=== PATIENT | male | born 1950 | race Caucasian/White ===

== ENCOUNTER 2017-09-05 01:11 | Emergency (ER) | payer MEDICARE ==
[2017-09-05 01:38] LABS: Basophils # (A) 0.1 k/uL (0-0.2); Basophils % (A) 1 %; Eosinophils # (A) 0.1 k/uL (0-0.7); Eosinophils % (A) 2 %; HCT 50.6 % (39.0-53.0); HGB 17.4 gm/dL (13.0-17.5); Lymphocytes # (A) 1.9 k/uL (1.0-4.8); Lymphocytes % (A) 26 %; MCH 32.4 pg (25.0-35.0); MCHC 34.5 g/dL (31.0-37.0); Mean Platelet Volume 7.8; Monocytes # (A) 0.4 k/uL (0-1.0); Monocytes % (A) 6 %; Neutrophils # (A) 4.7 k/uL (1.3-7.7); Neutrophils % (A) 64 %; Platelet Count 169 k/uL (150-450); RBC 5.38 m/uL (4.30-5.90); RDW 13.2 % (11.5-15.5); WBC 7.4 k/uL (3.8-10.6)
--- NOTE | 2017-09-05 01:40 | ED ---
Chest Pain HPI - General Chief Complaint: Chest Pain Stated Complaint: chest pain Time Seen by Provider: 09/05/17 01:24 Source: patient, family Mode of arrival: ambulatory Limitations: no limitations - History of Present Illness Initial Comments: This patient is a 67-year-old man who presents to be evaluated for left-sided chest pain. Patient states that started approximately 2 hours ago while he was watching wrestling on television. He states that it feels like he was punched there, but he did not have any trauma. He does state that he may have strained his chest wall while at work, but that he is not recall any specific injury. Patient states the pain is constant. He has not discovered any worsening or relieving factors. No associated symptoms. MD Complaint: chest pain Onset/Timin -: hour(s) Onset: during rest Pain Location: left chest Pain Radiation: none Severity: moderate Quality: other (Like I was punched) Consistency: constant Improves With: nothing Worsens With: nothing Treatments Prior to Arrival: none - Related Data Home Medications Medication Instructions Recorded Confirmed No Known Home Medications [No 09/05/17 09/05/17 Known Home Medications] Allergies Allergy/AdvReac Type Severity Reaction Status Date / Time No Known Allergies Allergy Verified 09/05/17 01:16 Review of Systems ROS Statement: Those systems with pertinent positive or pertinent negative responses have been documented in the HPI. ROS Other: All systems not noted in ROS Statement are negative. Constitutional: Denies: fever, chills, weakness Respiratory: Denies: cough, dyspnea Cardiovascular: Reports: chest pain. Denies: palpitations, orthopnea, edema, syncope Gastrointestinal: Denies: abdominal pain, nausea, vomiting Musculoskeletal: Denies: back pain Skin: Denies: rash Neurological: Denies: headache, weakness, numbness, paresthesias EKG Findings - EKG Comments: EKG Findings:: Possible old anterior infarct. - EKG Results: EKG: interpreted by YANETHD, sinus rhythm (Rate proximal 91 bpm), normal axis, normal ST/T Past Medical History Past Medical History: No Reported History History of Any Multi-Drug Resistant Organisms: None Reported Past Surgical History: No Surgical Hx Reported Past Psychological History: No Psychological Hx Reported Smoking Status: Current every day smoker Past Alcohol Use History: None Reported Past Drug Use History: None Reported General Exam Limitations: no limitations General appearance: alert, in no apparent distress Head exam: Present: atraumatic, normocephalic Eye exam: Present: normal appearance. Absent: scleral icterus, conjunctival injection ENT exam: Present: normal oropharynx Respiratory exam: Present: normal lung sounds bilaterally. Absent: respiratory distress, wheezes, rales, rhonchi, stridor, chest wall tenderness Cardiovascular Exam: Present: regular rate, normal rhythm, normal heart sounds. Absent: systolic murmur, diastolic murmur, rubs, gallop GI/Abdominal exam: Present: soft. Absent: distended, tenderness, guarding, rebound, mass Extremities exam: Present: normal inspection, normal capillary refill. Absent: pedal edema, calf tenderness Back exam: Present: normal inspection. Absent: CVA tenderness (R), CVA tenderness (L) Neurological exam: Present: alert Skin exam: Present: warm, dry, intact, normal color. Absent: rash Course Vital Signs 09/05/17 09/05/17 01:13 01:55 Temperature 97.6 F Pulse Rate 103 H 91 Respiratory 20 18 Rate Blood Pressure 185/94 150/81 O2 Sat by Pulse 97 97 Oximetry Chest [facility] Patient is 67-year-old man presenting with chest pain that has mixture of typical and atypical features. Given his smoking history I did advise admission for telemetry monitoring and serial cardiac enzymes. The patient states that as his symptoms have all resolved and he is feeling well, he wants to go home and follow-up. We discussed the appropriate follow-up and further care, as well as return parameters. The patient understands that he is welcome to return at any time and states she will do so should any symptoms develop. Disposition Clinical Impression: Chest pain Disposition: Left Against Medical Advice Condition: Undetermined Instructions: Chest Pain (ED) Is patient prescribed a controlled substance at d/c from ED?: No Referrals: None,Stated [Primary Care Provider] - 1-2 days Rossy Rowland MD [STAFF PHYSICIAN] - 1-2 days
[2017-09-05 01:48] LABS: ALT 68 U/L (21-72); AST 69 U/L (17-59); Albumin 4.4 g/dL (3.5-5.0); Alkaline Phosphatase 79 U/L (38-126); Anion Gap 15 mmol/L; Blood Urea Nitrogen 15 mg/dL (9-20); Calcium 9.6 mg/dL (8.4-10.2); Carbon Dioxide 27 mmol/L (22-30); Chloride 101 mmol/L (98-107); Glucose 119 mg/dL (74-99); Potassium 4.5 mmol/L (3.5-5.1); Sodium 143 mmol/L (137-145); Total Bilirubin 0.7 mg/dL (0.2-1.3); Total Protein 7.4 g/dL (6.3-8.2)
--- NOTE | 2017-09-05 01:54 | XR ---
EXAMINATION TYPE: XR chest 1V portable DATE OF EXAM: 09/05/2017 COMPARISON: 05/07/2014 HISTORY: Chest pain TECHNIQUE: Single frontal view of the chest is obtained. FINDINGS: Heart and mediastinum are normal. Lungs are clear. Diaphragm is normal. Bony thorax is int act. There are chest leads. IMPRESSION: Normal chest. No change.
[2017-09-05 02:14] VITALS: RESP 18
[2017-09-05 02:41] VITALS: BP 156/86; PULSE 68; TEMP 98.1
== END 2017-09-05 02:38 | disposition left against medical advice (07) ==
LOC: EC 01:11
DX: R07.9 Chest pain, unspecified (principal); F17.200 Nicotine dependence, unspecified, uncomplicated; Z53.29 Procedure and treatment not carried out because of patient's decision for other reasons
CPT/HCPCS: 36415; 71045; 80053; 83735; 84484; 85025; 85379; 93005; 99282; 99285

== ENCOUNTER 2017-09-05 18:54 | Emergency (ER) | payer MEDICARE ==
[2017-09-05 19:23] VITALS: PULSE 95
[2017-09-05 19:46] VITALS: BP 147/93; RESP 16; TEMP 98
--- NOTE | 2017-09-05 20:16 | ED ---
Recheck HPI - General Chief Complaint: Recheck/Abnormal Lab/Rx Stated Complaint: work clearance Time Seen by Provider: 09/05/17 19:57 Source: patient, RN notes reviewed, old records reviewed Mode of arrival: ambulatory Limitations: no limitations - History of Present Illness Initial Comments: This patient is a 67 year old male, presents to ED wanting a work note for clearance. Patient reports He was evaluated yesterday for chest pain's. States that he left against medical advice. He states that he was allowed to return to work on light duty. Patient states that his work will not let him work with light duty. He states that he needs to keep his job. He requests to work not saying that he can have full return to work. He denies any chest pain. He states that his symptoms are related to a pulled muscle last night. - Related Data Home Medications Medication Instructions Recorded Confirmed No Known Home Medications [No 09/05/17 09/05/17 Known Home Medications] Allergies Allergy/AdvReac Type Severity Reaction Status Date / Time No Known Allergies Allergy Verified 09/05/17 01:16 Review of Systems ROS Statement: Those systems with pertinent positive or pertinent negative responses have been documented in the HPI. ROS Other: All systems not noted in ROS Statement are negative. Past Medical History Past Medical History: No Reported History History of Any Multi-Drug Resistant Organisms: None Reported Past Surgical History: No Surgical Hx Reported Past Psychological History: No Psychological Hx Reported Smoking Status: Current every day smoker Past Alcohol Use History: None Reported Past Drug Use History: None Reported General Exam - General Exam Comments Initial Comments: 67 year old male, no distress. Limitations: no limitations General appearance: alert, in no apparent distress Head exam: Present: atraumatic, normocephalic, normal inspection Eye exam: Present: normal appearance, PERRL, EOMI. Absent: scleral icterus, conjunctival injection, periorbital swelling ENT exam: Present: normal exam, mucous membranes moist Neck exam: Present: normal inspection. Absent: tenderness, meningismus, lymphadenopathy Respiratory exam: Present: normal lung sounds bilaterally. Absent: respiratory distress, wheezes, rales, rhonchi, stridor Cardiovascular Exam: Present: regular rate, normal rhythm, normal heart sounds. Absent: systolic murmur, diastolic murmur, rubs, gallop, clicks Extremities exam: Present: normal inspection, full ROM, normal capillary refill. Absent: tenderness, pedal edema, joint swelling, calf tenderness Back exam: Present: normal inspection Neurological exam: Present: alert, oriented X3, CN II-XII intact Psychiatric exam: Present: normal affect, normal mood Skin exam: Present: warm, dry, intact, normal color. Absent: rash Course Vital Signs 09/05/17 09/05/17 19:20 19:42 Temperature 98.7 F 98.0 F Pulse Rate 95 95 Respiratory 18 16 Rate Blood Pressure 165/79 147/93 O2 Sat by Pulse 95 95 Oximetry Medical Decision Making - Medical Decision Making Well appearing 67 year old male requests a note for returning to work. He was evaluated yesterday for chest pain and left AMA. Patient reports no chest pain, shortness of breath, or any other symptoms. Discussed he needs to follow up with PCP to get complete work clearance. All question answered and return parameters discussed. Disposition Clinical Impression: Return to work exam Disposition: HOME SELF-CARE Condition: Good Additional Instructions: Patient is to return to the emergency department for further evaluation and there is any chest pain or other concerning symptoms. Is patient prescribed a controlled substance at d/c from ED?: No If prescribed controlled substance>3 days was MAPS reviewed?: No When asked, does pt state using other controlled substances?: No Referrals: None,Stated [Primary Care Provider] - 1-2 days Michael Guerrero Jr, DO [Doctor of Osteopathic Medicine] - 1-2 days Time of Disposition: 20:15
== END 2017-09-05 20:25 | disposition home or self-care (01) ==
LOC: EC 18:54
DX: Z02.1 Encounter for pre-employment examination (principal); F17.200 Nicotine dependence, unspecified, uncomplicated
CPT/HCPCS: 99282

== ENCOUNTER → 2017-10-04 | Outpatient (CLI) | payer MEDICARE ==
--- NOTE | 2017-10-04 10:21 | NM ---
EXAMINATION TYPE: NM stress cardiolite complete DATE OF EXAM: 10/04/2017 COMPARISON: NONE HISTORY: Chest pain with history of tobacco abuse. TECHNIQUE: After the intravenous administration of 10.14 mCi Tc 99m Sestamibi - Rest images obtained 50 minutes post injection. The patient exercised using a SAVANNA protocol and 1 minute prior to peak exercise was injected with 25.7 mCi Tc 99m Sestamibi - Stress images obtained 10 minutes post inject ion. FINDINGS: Targeted heart rate was achieved during performance of the study. Review of stress and rest SPECT rachel ges demonstrates no distinct perfusion abnormality. Gated analysis shows normal wall motion with an estimated left ventricular ejection fraction of 65 %. TID is calculated at 0.84 IMPRESSION: No scintigraphic evidence for reversible ischemia. Estimated left ventricular ejection fraction of 65 %.
--- NOTE | 2017-10-04 11:27 | ECHOF ---
Referral Reason:R07.89 Chest Pain MEASUREMENTS -------- HEIGHT: 170.2 cm WEIGHT: 88.5 kg BP: 184/92 RVIDd: 2.9 cm (< 3.3) IVSd: 1.0 cm (0.6 - 1.1) LVIDd: 4.0 cm (3.9 - 5.3) LVPWd: 1.1 cm (0.6 - 1.1) IVSs: 1.3 cm LVIDs: 3.0 cm LVPWs: 1.3 cm LAESV Index (A-L): 20.78 ml/m Ao Diam: 3.9 cm (2.0 - 3.7) AV Cusp: 1.8 cm (1.5 - 2.6) LA Diam: 2.5 cm (2.7 - 3.8) EPSS: 0.5 cm MV E Satinder: 0.65 m/s MV DecT: 242 ms MV A Satinder: 0.62 m/s MV E/A Ratio: 1.04 RAP: 5.00 mmHg RVSP: 7.49 mmHg MV EF SLOPE: 125.80 mm/s (70 - 150) MV EXCURSION: 1.76 cm (> 18.000) FINDINGS -------- Sinus rhythm. This was a technically adequate study. The left ventricular size is normal. Left ventricular wall thickness is normal. Overall left vent ricular systolic function is normal with, an EF between 55 - 60 %. The right ventricle is normal in size and function. Normal LA size by volume 22+/-6 ml/m2. RA appears enlarged. Aortic valve is trileaflet and is mildly thickened. Trace amount of aortic regurgitation. There is no evidence of aortic stenosis. The mitral valve leaflets are mildly thickened. There is trace to mild mitral regurgitation. Trace tricuspid regurgitation present. Right ventricular systolic pressure is normal at < 35 mmHg. There is no evidence of pulmonary hypertension. Trace/mild (physiologic) pulmonic regurgitation. The aortic root is borderline dilated, up to 3.9 cm. Normal inferior vena cava with normal inspiratory collapse consistent with estimated right atrial pre ssure of 5 mmHg. There is no pericardial effusion. CONCLUSIONS -------- 1. Sinus rhythm. 2. This was a technically adequate study. 3. The left ventricular size is normal. 4. Left ventricular wall thickness is normal. 5. Overall left ventricular systolic function is normal with, an EF between 55 - 60 %. 6. Normal LA size by volume 22+/-6 ml/m2. 7. RA appears enlarged. 8. Aortic valve is trileaflet and is mildly thickened. 9. Trace amount of aortic regurgitation. 10. The mitral valve leaflets are mildly thickened. 11. There is trace to mild mitral regurgitation. 12. Trace tricuspid regurgitation present. 13. Right ventricular systolic pressure is normal at < 35 mmHg. 14. There is no evidence of pulmonary hypertension. 15. Trace/mild (physiologic) pulmonic regurgitation. 16. The aortic root is borderline dilated, up to 3.9 cm. 17. There is no pericardial effusion. EVENT CREW TECHNICIAN: Cole Loja RDCS
--- NOTE | 2017-10-04 13:26 | EST ---
EXERCISE STRESS DATE OF SERVICE: 10/04/2017 AGE: 67 SEX: Male HT: 67" WT: 195 pounds PROTOCOL: Cardiolite Harvinder STAGE: II DURATION OF EXERCISE: 6 minutes HEART RATE REST: 65 BLOOD PRESSURE REST: 179/87 MAXIMUM HEART RATE ACHIEVED: 144 MAXIMUM BLOOD PRESSURE: 200/85 85% MPHR: 132 100% MPHR: 155 METS: 7.3 INDICATIONS: Chest pain. CLINICAL INFORMATION: The patient was exercised for a total period of 6 minutes. The peak heart rate of 144, was achieved. Maximum blood pressure of 200/85 mmHg was noted. The patient did not complain of any chest pain during the test. Resting EKG shows normal sinus rhythm with normal GA and QRS duration and normal ST-T waves. No ST-segment depression suggestive of ischemia is noted. The test was terminated because patient got short of breath and leg pain. FINAL IMPRESSION: This stress test is not suggestive of ischemia. Patient's exercise tolerance is average. No dysrhythmias are noted. MMODL / IJN: [id number] /
== END ==
LOC: RADNMMAIN 08:07
PROVIDERS: ATTEND Family Medicine
DX: R07.9 Chest pain, unspecified (principal)
CPT/HCPCS: 93017; 93306; 78452; A9500

== ENCOUNTER → 2019-01-25 | Outpatient (CLI) | payer MEDICARE ==
--- NOTE | 2019-01-25 08:41 | US ---
EXAMINATION TYPE: US gallbladder DATE OF EXAM: 01/25/2019 COMPARISON: NONE CLINICAL HISTORY: R94.5 Abnormal results of liver function studies. Abnormal labs EXAM MEASUREMENTS: Liver Length: 18.0 cm Gallbladder Wall: 0.2 cm CBD: 0.3 cm Right Kidney: 11.5 x 5.1 x 5.3 cm Pancreas: Body wnl, head and tail obscured by overlying bowel gas Liver: Diffusely heterogenous with areas of more focal hypoattenuation such as on image 38/40. The l iver is overall difficult to penetrate per the commissioned security officer and upper limits of normal for size. There is increased echogenicity of the hepatic parenchyma with diminished visualization of the portal tria ds most commonly relating to hepatic steatosis and limiting evaluation for underlying hepatic masses. Gallbladder: wnl Evidence for sonographic Heath's sign: No CBD: wnl Right Kidney: wnl IMPRESSION: Sonographic findings most commonly related to hepatic steatosis. Correlate with liver fun ction test results. Findings do limit evaluation for hepatic mass given the diffuse heterogeneity. Th is could represent areas of focal fatty sparing or hepatic masses and three-phase enhanced CT abdomen is recommended for further characterization.
== END | disposition home or self-care (01) ==
LOC: RADUSWWP 07:36
PROVIDERS: ATTEND Family Medicine
DX: R94.5 Abnormal results of liver function studies (principal); R94.4 Abnormal results of kidney function studies
CPT/HCPCS: 76705

== ENCOUNTER → 2019-04-25 | Outpatient (CLI) | payer MEDICARE ==
--- NOTE | 2019-04-25 09:31 | CT ---
EXAMINATION TYPE: CT abdomen wo/w con DATE OF EXAM: 04/25/2019 COMPARISON: NONE HISTORY: 68-year-old male abnormal lab values on kidney study TECHNIQUE: Contiguous axial scanning of the abdomen before and after administration of 100 ml Isovue 300 IV contrast. Delayed images through the kidneys and coronal/sagittal reconstructions performed. CT DLP: 1499.6 mGycm Automated exposure control for dose reduction was used. FINDINGS: Heart normal size without pericardial effusion. Some RCA coronary artery calcifications are noted. Brook ng bases clear without pleural effusion. Liver enlarged measuring 19.4 cm with diffuse low-attenuation. No focal liver lesion or biliary ducta l dilatation. Portal venous system is patent. Gallbladder, adrenal glands, spleen with tiny hilar splenule, and pancreas appear within normal limit s. Punctate 3 mm nonobstructing calculus anterior mid pole left kidney. No hydronephrosis. 9 mm exophytic hypodensity lateral right kidney too small for accurate CT characterization suggestive of a cortical cyst. A 5 mm cortical hypodensity medial left upper pole is indeterminate and can be reassessed at 6 month follow-up, refer to axial image 27 and 28. Moderate atelectatic calcification throughout the abdominal aorta with fusiform 2.4 cm dilatation inf rarenal abdominal aorta. No aneurysm. No dilated small bowel, free fluid, or free air. Mild stool burden. No pericolonic inflammatory change. IMPRESSION: 1. PUNCTATE 3 MM NONOBSTRUCTIVE LEFT RENAL CALCULUS. NO HYDRONEPHROSIS. 2. A 9 MM PROBABLE CORTICAL CYST LATERAL RIGHT KIDNEY. A 5 MM CORTICAL HYPODENSITY MEDIAL UPPER POLE LEFT KIDNEY IS INDETERMINATE. SIX-MONTH FOLLOW-UP CT RECOMMENDED TO REASSESS. 3. 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
== END | disposition home or self-care (01) ==
LOC: RADCTMAIN 07:34
PROVIDERS: ATTEND Family Medicine
DX: N20.0 Calculus of kidney (principal); K76.0 Fatty (change of) liver, not elsewhere classified; R79.9 Abnormal finding of blood chemistry, unspecified
CPT/HCPCS: 82565; 84520; 74170; 36415; Q9967

== ENCOUNTER → 2019-11-13 | Outpatient (CLI) | payer MEDICARE ==
[2019-11-13 14:24] LABS: African American GFR (CKD) >90 (>60 ml/min/1.73 sqM); Blood Urea Nitrogen 14 mg/dL (9-20); Non-African American GFR(CKD) 85 (>60 ml/min/1.73 sqM)
--- NOTE | 2019-11-13 15:47 | CT ---
EXAMINATION TYPE: CT abdomen wo/w con DATE OF EXAM: 11/13/2019 COMPARISON: CT abdomen April 25, 2019 HISTORY: Renal mass CT DLP: 1688 mGycm, Automated Exposure Control for Dose Reduction was Utilized. CONTRAST: CT scan of the abdomen is performed with oral and without and with IV Contrast, patient injected with 100 mL of Isovue 300. FINDINGS: LUNG BASES: Coronary artery calcification is redemonstrated. [id number] bibasilar linear scarri ng and/or atelectasis. LIVER/GB: Liver is diffusely low dense consistent with fatty infiltration is redemonstrated. PANCREAS: No significant abnormality is seen. SPLEEN: No significant abnormality is seen. ADRENALS: No significant abnormality is seen. KIDNEYS: Noncontrast images show persistent 2-3 mm focus anterior mid pole left kidney axial series 3 image 41 consistent with tiny calculus. Postcontrast images show symmetric cortical medullary uptake and excretion from both kidneys without hydronephrosis seen bilaterally.. Stable 9 mm exophytic low dense lesion laterally right kidney midpole level series 6 image 29 presumed benign. Roughly 4 mm exo phytic low-density lesion medially in the upper pole left kidney seen best coronal series 8 image 69 too small to further characterize presumed benign without interval change from prior. No new concerni ng solid or cystic renal mass. BOWEL: No significant abnormality is seen. LYMPH NODES: No greater than 1cm abdominal lymph nodes are appreciated. OSSEOUS STRUCTURES: Bowel multilevel spurring in the thoracolumbar spine. Posterior disc herniations mildly effaces the anterior thecal sac mid to lower lumbar spine. OTHER: Stable small fat-containing umbilical hernia. Prominent anterior subcutaneous vessel in the m idline of the upper to mid abdomen redemonstrated. Moderate calcified plaque of the aorta extends int o pelvic branch vessels IMPRESSION: No new or enlarging suspicious renal mass.
== END | disposition home or self-care (01) ==
LOC: RADCTMAIN 13:22
PROVIDERS: ATTEND Family Medicine
DX: R93.2 Abnormal findings on diagnostic imaging of liver and biliary tract (principal)
CPT/HCPCS: 82565; 84520; 74170; 36415; Q9967

== ENCOUNTER → 2020-08-10 | Outpatient (CLI) | payer MEDICARE ==
[2020-08-10 15:20] LABS: Prothrombin Time 10.6 sec (9.0-12.0)
[2020-08-10 19:23] LABS: HCT 42.3 % (39.6-50.0); HGB 13.7 g/dL (13.0-17.0); MCH 32.7 pg (27.0-32.0); MCHC 32.4 g/dL (32.0-37.0); Mean Platelet Volume 11.3 fL (9.5-12.2); Platelet Count 140 X 10*3/uL (140-440); RBC 4.19 X 10*6/uL (4.40-5.60); RDW 13.5 % (11.5-14.5); WBC 5.05 X 10*3/uL (4.50-10.00)
[2020-08-11 01:06] LABS: Ferritin 152.7 ng/mL (22.0-322.0)
[2020-08-11 01:32] LABS: % Iron Saturation 31.58 (15.00-50.00); African American GFR (CKD) 89.2 (60.0-200.0); Albumin 4.4 g/dL (3.80-4.90); Anion Gap 12.2 mmol/L (4.00-12.00); Calcium 9.5 mg/dL (8.7-10.3); Carbon Dioxide 21.8 mmol/L (21.6-31.8); Globulin 2.2 g/dL (1.6-3.3); Potassium 4.1 mmol/L (3.5-5.5); Total Bilirubin 0.6 mg/dL (0.2-1.2); Total Protein 6.6 g/dL (6.2-8.2)
[2020-08-11 13:23] LABS: Liver/Kidney Microsome Antibod 1.9 UNITS (<=20)
[2020-08-11 15:22] LABS: Ceruloplasmin 23.4 mg/dL (20.0-60.0)
[2020-08-11 15:25] LABS: Protein, Total 6.7 g/dL (6.2-8.2)
[2020-08-12 13:03] LABS: Albumin 3.71 g/dL (3.80-4.90); Gamma Globulin 0.76 g/dL (0.70-1.50)
== END | disposition home or self-care (01) ==
LOC: LABWHC1 13:08
PROVIDERS: ATTEND Internal Medicine
DX: R74.01 Elevation of levels of liver transaminase levels (principal)
CPT/HCPCS: 36415; 80053; 82103; 82390; 82728; 83516; 83540; 83550; 84165; 85027; 85610; 86038; 86376

== ENCOUNTER → 2020-08-13 | Outpatient (CLI) | payer MEDICARE ==
--- NOTE | 2020-08-13 09:57 | US ---
EXAMINATION TYPE: US abdomen complete DATE OF EXAM: 08/13/2020 COMPARISON: CT abdomen November 13, 2019 CLINICAL HISTORY: R74.01 Elevated liver levels. EXAM MEASUREMENTS: Liver Length: 14.4 cm Gallbladder Wall: 0.2 cm CBD: 0.3 cm Spleen: 12.0 cm Right Kidney: 11.2 x 4.1 x 4.5 cm Left Kidney: 11.5 x 5.7 x 5.1 cm Extensive midline bowel gas, technically difficult. Pancreas: Partially obscured by bowel gas, portions visualized wnl Liver: heterogeneous Gallbladder: wnl Evidence for sonographic Heath's sign: no CBD: wnl Spleen: wnl Right Kidney: wnl Left Kidney: wnl Upper IVC: wnl Abd Aorta: mostly obscured by overlying bowel gas, portions visualized wnl The visualized liver is heterogeneously hyperechoic. Evaluation for focal masses suboptimal due to th e heterogeneity. No suspicious focal masses or ductal dilatation seen on images saved. The intrahepat ic portion of the IVC and visualized abdominal aorta are within normal limits. There is no evidence of shadowing mobile cholelithiasis. Common bile duct is unremarkable. The visualized portions of th e pancreas are homogenous. The spleen is upper limits of normal in size. Kidneys are symmetric and free of hydronephrosis. No renal lesions are seen. IMPRESSION: Diffuse fatty infiltration and/or underlying hepatocellular disease of liver redemonstrat ed. Correlate clinically.
== END | disposition home or self-care (01) ==
LOC: RADUSWWP 09:15
PROVIDERS: ATTEND Internal Medicine
DX: R74.01 Elevation of levels of liver transaminase levels (principal)
CPT/HCPCS: 76700

== ENCOUNTER 2022-11-18 00:36 | Emergency (ER) | payer MEDICARE ==
[2022-11-18 01:07] VITALS: RESP 16; TEMP 97.1
[2022-11-18] MEDS ORDERED: IBUPROFEN 800 MG TAB PO STA (01:35)
[2022-11-18] MEDS ORDERED: HYDROmorphone 1 MG/ML 1 ML SYRINGE IM STA (01:35)
--- NOTE | 2022-11-18 01:37 | ED ---
Back Pain HPI - General Chief Complaint: Back Pain/Injury Stated Complaint: Back Injury Time Seen by Provider: 11/18/22 01:13 Source: patient, RN notes reviewed, old records reviewed Limitations: no limitations - History of Present Illness Initial Comments: This is a 72-year-old male to the emergency department for evaluation of back pain. Patient persistent back pain fell 2 days ago with persistent back pain back pain is continuing here in the emergency room and currently. No loss of bowel or bladder. Patient is able ambulate MD Complaint: back pain, back injury -: hour(s) Similar Symptoms Previously: Yes Place: home Radiation: none Severity: moderate Severity scale (1-10): 4 Quality: sharp Consistency: constant Improves With: none Context: fall Associated Symptoms: denies other symptoms - Related Data Home Medications Medication Instructions Recorded Confirmed No Known Home Medications 09/05/17 09/05/17 Allergies Allergy/AdvReac Type Severity Reaction Status Date / Time No Known Allergies Allergy Verified 09/05/17 01:16 Review of Systems ROS Statement: Those systems with pertinent positive or pertinent negative responses have been documented in the HPI. ROS Other: All systems not noted in ROS Statement are negative. Past Medical History Past Medical History: Cancer History of Any Multi-Drug Resistant Organisms: None Reported Past Surgical History: No Surgical Hx Reported Additional Past Surgical History / Comment(s): abdominal surgery for CA. Past Psychological History: No Psychological Hx Reported Past Alcohol Use History: None Reported Past Drug Use History: None Reported General Exam Limitations: no limitations General appearance: alert, in no apparent distress Head exam: Present: atraumatic, normocephalic, normal inspection Eye exam: Present: normal appearance, PERRL, EOMI. Absent: scleral icterus, conjunctival injection, periorbital swelling ENT exam: Present: normal exam, mucous membranes moist Neck exam: Present: normal inspection. Absent: tenderness, meningismus, lymphadenopathy Respiratory exam: Present: normal lung sounds bilaterally. Absent: respiratory distress, wheezes, rales, rhonchi, stridor Cardiovascular Exam: Present: regular rate, normal rhythm, normal heart sounds. Absent: systolic murmur, diastolic murmur, rubs, gallop, clicks GI/Abdominal exam: Present: soft, normal bowel sounds. Absent: distended, tenderness, guarding, rebound, rigid Extremities exam: Present: normal inspection, full ROM, normal capillary refill. Absent: tenderness, pedal edema, joint swelling, calf tenderness Back exam: Present: normal inspection Neurological exam: Present: alert, oriented X3, CN II-XII intact Psychiatric exam: Present: normal affect, normal mood Skin exam: Present: warm, dry, intact, normal color. Absent: rash Course Vital Signs 11/18/22 11/18/22 01:03 04:30 Temperature 97.1 F L Pulse Rate 81 74 Respiratory 16 16 Rate Blood Pressure 137/83 155/89 O2 Sat by Pulse 97 96 Oximetry - Reevaluation(s) Reevaluation #1: 11/18/22 01:35 Medical record. Is reviewed Reevaluation #2: 11/18/22 01:36 Patient informed of results and questions answered Reevaluation #3: 11/18/22 01:36 Patient's back pain is improved Reevaluation #4: 11/18/22 01:35 Was pt. sent in by a medical professional or institution (, PA, [employer], urgent care, hospital, or half-way...) When possible be specific @ -no Did you speak to anyone other than the patient for history (EMS, parent, family, police, friend...)? What history was obtained from this source @ -no Did you review nursing and triage notes (agree or disagree)? Why? @ -agree Are old charts reviewed (outside hosp., previous admission, EMS record, old EKG, old radiological studies, urgent care reports/EKG's, half-way records)? Report findings @ -yes Differential Diagnosis (chest pain, altered mental status, abdominal pain women, abdominal pain men, vaginal bleeding, weakness, fever, dyspnea, syncope, headache, dizziness, GI bleed, back pain, seizure, CVA, palpatations, mental health, musculoskeletal)? @ -prior EKG interpreted by me (3pts min.). @ -yes X-rays interpreted by me (1pt min.). @ -no CT interpreted by me (1pt min.). @ -yes U/S interpreted by me (1pt. min.). @ -no What testing was considered but not performed or refused? (CT, X-rays, U/S, labs)? Why? @ -none What meds were considered but not given or refused? Why? @ -none Did you discuss the management of the patient with other professionals (professionals i.e. , PA, [employer], lab, RT, psych nurse, sexual assault social worker, financial services officer, teacher, air support control officer, case management social worker)? Give summary @ -no Was smoking cessation discussed for >3mins.? @ -no Was critical care preformed (if so, how long)? @ -no Were there social determinants of health that impacted care today? How? (Homelessness, low income, unemployed, alcoholism, drug addiction, transportation, low edu. Level, literacy, decrease access to med. care, [facility], rehab)? @ -none Was there de-escalation of care discussed even if they declined (Discuss DNR or withdrawal of care, Hospice)? DNR status @ -no What co-morbidities impacted this encounter? (DM, HTN, Smoking, COPD, CAD, Cancer, CVA, ARF, Chemo, Hep., AIDS, mental health diagnosis, sleep apnea, morbid obesity)? @ -none Was patient admitted / discharged? Hospital course, mention meds given and route, prescriptions, significant lab abnormalities, going to OR and other pertinent info. @ - 72 male to the emergency department for evaluation of back pain, back pain is well-controlled currently patient feels improved able to ambulate with no neurological complaint and can be discharged home Discharge Undiagnosed new problem with uncertain prognosis? @ -no Drug Therapy requiring intensive monitoring for toxicity (Heparin, Nitro, Insulin, Cardizem)? @ -no Were any procedures done? @ -no Diagnosis/symptom? @ - Acute, or Chronic, or Acute on Chronic? @ -Acute Uncomplicated (without systemic symptoms) or Complicated (systemic symptoms)? @ -Complicated Side effects of treatment? @ -no Exacerbation, Progression, or Severe Exacerbation? @ -exacerbation Poses a threat to life or bodily function? How? (Chest pain, [place], [place], pneumonia, PE, COPD, DKA, ARF, appy, cholecystitis, CVA, Diverticulitis, Homicidal, Suicidal, threat to staff... and all critical care pts) @ -yes Reevaluation #5: 11/18/22 01:36 Differential Back Pain: Strain, zoster, cauda equina syndrome, epidural abscess, vertebral osteomyelitis, discitis, fracture, subluxation, disc herniation, DJD, spinal stenosis, dissection, AAA, pancreatitis, peptic ulcer disease, pyelonephritis, kidney stone, this is not meant to be an all-inclusive list. Medical Decision Making - Medical Decision Making 72 male to the emergency department for evaluation of back pain, back pain is well-controlled currently patient feels improved able to ambulate with no neurological complaint and can be discharged home - Radiology Data Radiology results: report reviewed (CT LS spine negative for acute disease), image reviewed Disposition Clinical Impression: Mechanical back pain, Mid back pain, Lumbar radiculopathy Disposition: HOME SELF-CARE Condition: Good Instructions (If sedation given, give patient instructions): Acute Low Back Pain (ED) Is patient prescribed a controlled substance at d/c from ED?: No Referrals: Michael Guerrero Jr, [Primary Care Provider] - 1-2 days Time of Disposition: 03:30
--- NOTE | 2022-11-18 03:06 | CT ---
EXAM: CT Lumbar Spine Without Intravenous Contrast CLINICAL HISTORY: ITS.REASON CT Reason: fall,pain TECHNIQUE: Axial computed tomography images of the lumbar spine without intravenous contrast. CTDI is 40 mGy and DLP is 1285.6 mGy-cm. This CT exam was performed using one or more of the following dose reduction techniques: automated exposure control, adjustment of the mA and/or kV according to patient size, and/or use of iterative reconstruction technique. COMPARISON: No relevant prior studies available. FINDINGS: Vertebrae: No acute fracture. No subluxation. Discs/spinal canal/neural foramina: No significant spinal canal stenosis. Mild disc bulge at L3-4 and L4-5. Mild bilateral L3-4 and L4- 5 foraminal stenosis. Soft tissues: Unremarkable. IMPRESSION: No acute fracture.
[2022-11-18] MEDS ORDERED: traMADol 50 MG STARTER PACK 3 TAB BTL PO STA (03:39)
[2022-11-18] MEDS ORDERED: IBUPROFEN 600 MG STARTER PACK 4 TAB BTL PO STA (03:39)
[2022-11-18 04:31] VITALS: BP 155/89; PULSE 74
== END 2022-11-18 04:31 | disposition home or self-care (01) ==
LOC: EC 00:36
DX: M54.16 Radiculopathy, lumbar region (principal); M54.6 Pain in thoracic spine; W19.XXXA Unspecified fall, initial encounter; Y92.009 Unspecified place in unspecified non-institutional (private) residence as the place of occurrence of the external cause
CPT/HCPCS: 72131; 99284; 96372; J1170

== ENCOUNTER → 2024-08-23 | Outpatient (CLI) | payer MEDICARE ==
--- NOTE | 2024-08-24 15:04 | CTL ---
EXAMINATION TYPE: CT Low Dose Lung DATE OF EXAM: 08/23/2024 10:47 AM COMPARISON: Correlation CT abdomen 04/12/2020. CLINICAL INDICATION: Male, 74 years old with history of Z12.2 SCREENING LUNG CA F17.210 CURRENT SMOKE R, smokes 1/2 a pack a day for 60 years, History of tobacco use. TECHNIQUE: Low dose computed tomography scan was performed through the chest at 1 mm thick sections a nd reconstructed images in multiple planes at 1 mm and [address] DLP: 90.2 mGycm, CT CTDI: 2.3 mGy, Automated exposure control for dose reduction was used. CT DIAGNOSTIC QUALITY: Satisfactory FINDINGS: The heart is normal size without pericardial effusion. Extensive coronary artery calcifications are p resent. Ascending aorta mildly ectatic 3.7 cm. Scattered mild to moderate atherosclerotic calcifications thro ughout the thoracic aorta is tortuous branch anatomy. Borderline ectatic upper descending thoracic ao rta 3.2 cm. Scattered nonenlarged mediastinal lymph nodes. Scattered subpleural reticular and microcystic change throughout the lungs. Mild to moderate emphysem atous change. No flo honeycombing. Minimal bibasilar bronchiolectasis * 8mm right midlung pulmonary nodule, and axial image 124. * Nonspecific 3 mm left upper lobe pulmonary nodule on axial image 97. * 4 mm lingular pulmonary nodule, axial image 120. Visualized upper abdomen shows nodular hepatic contour in some varices along the anterior abdominal w all. Suspected recanalized umbilical vein. Unchanged cortical lesion lateral mid right kidney measuri ng 1.3 cm, likely cyst. Rounded protuberance at the central liver measuring up to 7.9 cm, suspected caudate lobe hypertrophy. This should be confirmed with CT or MRI of the liver to exclude underlying mass. Bones DISH lower thoracic spine. No osseous destructive process. IMPRESSION: 1. LungRADS Category 4A (suspicious, 5-15% chance of malignancy); 8 mm right midlung pulmonary nodule on baseline screening. A couple additional nodules measuring up to 4 mm on the left. 3 month follow- up low-dose CT chest. 2. COPD with [id number] emphysema and superimposed interstitial fibrosis. 3. Extensive three-vessel coronary artery calcification. 4. Note cirrhosis and findings which suggest underlying portal venous hypertension. Recommend appropr iate GI referral. Rounded 7.9 cm protuberance of the central liver suspected to represent caudate lob e hypertrophy. Contrast-enhanced CT or MRI of the liver may be needed to exclude underlying mass. CT LUNG RAD AND CT CHEST RECOMMENDATION: Lung-Rad 4A Suspicious: Follow-up 3 month LDCT or PET/CT may be used when there is a > 8 mm solid component. S Modifier (other clinically significant findings): S, GI referral for further assessment of the live r, cirrhosis, and venous hypertension as above. [facility], , 08/24/2024 3:01 PM
== END | disposition home or self-care (01) ==
LOC: RADCTMAIN 10:22
PROVIDERS: ATTEND Family Medicine
DX: Z12.2 Encounter for screening for malignant neoplasm of respiratory organs (principal); F17.210 Nicotine dependence, cigarettes, uncomplicated; J44.9 Chronic obstructive pulmonary disease, unspecified; J43.9 Emphysema, unspecified; I25.10 Atherosclerotic heart disease of native coronary artery without angina pectoris; K74.60 Unspecified cirrhosis of liver
CPT/HCPCS: 71271

== ENCOUNTER → 2024-10-02 | Outpatient (CLI) | payer MEDICARE ==
--- NOTE | 2024-10-02 08:48 | MR ---
EXAMINATION TYPE: MR liver wo/w con DATE OF EXAM: 10/02/2024 8:14 AM COMPARISON: CT scan abdomen from 08/23/2024 04/25/2019 CLINICAL INDICATION: Male, 74 years old with history of K76.7 LIVER LESION; PHH, Abnormal CT Chest TECHNIQUE: Multiplanar multi-sequence imaging was performed without contrast. Post contrast imaging was performed. Post IV contrast subtraction images were also submitted for review. IV Contrast: 9 mL Gadobutrol FINDINGS: LOWER CHEST: No gross irregularity. ABDOMEN Liver: The liver is enlarged for size measuring up to 17.4 cm. Loss of signal on chemical shift of ph ase imaging. Mild nodularity to the liver contour. Signal caudate lobe cyst measuring 10 mm. There is caudate lobe hypertrophy changes which impress upon the IVC and narrowing it. No suspicious masses. Gallbladder and Bile ducts: No evidence for ductal dilation, or biliary stricture or evidence of chol edocholithiasis. The gallbladder is within normal limits. Pancreas: No ductal dilation. No evidence for solid mass. Spleen: Enlarged up to 14.4 cm. Adrenal glands: Unremarkable. Kidneys: No evidence for obstructive uropathy. No suspicious renal masses. 13 mm right renal cortical cyst. Follow-up recommended for this is a simple high T2 appearing cyst. Stomach and Bowel: No evidence for bowel wall thickening or evidence for obstruction. Retroperitoneum/Peritoneum: No evidence of pneumoperitoneum or free fluid. Vasculature: No aortic aneurysm. Moderate atherosclerosis of the arterial vasculature. Tortuous vesse ls in the anterior abdominal wall with recanalization of the periumbilical vein. Musculoskeletal: The osseous structures appear intact. Lymph Nodes: No gross evidence for lymphadenopathy. Abdominal wall: Tortuous vessels in the anterior abdominal wall with recanalization of the periumbili samantha vein. IMPRESSION: 1. Hepatomegaly with Hepatic steatosis with subtle undulating contour to liver with caudate lobe hyp ertrophy suggesting early cirrhosis. Evidence of portal hypertension also present with mild splenomeg maggie. No suspicious observations. Correlate with serum markers. 2. Simple appearing right renal cyst Bosniak type I. No follow-up recommended. [facility], , 10/02/2024 8:46 AM
== END | disposition home or self-care (01) ==
LOC: RADMRIMAIN 07:09
PROVIDERS: ATTEND Family Medicine
DX: K76.0 Fatty (change of) liver, not elsewhere classified (principal); R16.2 Hepatomegaly with splenomegaly, not elsewhere classified; N28.1 Cyst of kidney, acquired
CPT/HCPCS: 74183; A9585